=== PATIENT | male | born 1990 | race Two or more races ===

== ENCOUNTER 2023-07-01 16:35 | Emergency (ER) | payer MEDICAID ==
[~2023-07-01] VITALS: Ht 170.2 cm; Wt 84.0 kg
[2023-07-01 18:13] LABS: Basophils # (auto) 0.1 10 ^3/uL (0-0.2); Basophils % (auto) 0.6 % (0.0-2.0); Eosinophils # (auto) 0 10 ^3/uL (0-0.8); Eosinophils % (auto) 0.3 % (0.0-7.0); Hematocrit 44.6 % (41.0-53.0); Hemoglobin 15.6 g/dL (13.5-17.5); Lymphocytes # (auto) 1.7 10 ^3/uL (0.4-5.4); Lymphocytes % (auto) 20.8 % (10.0-50.0); Mean Corpuscular Hemoglobin 31.4 pg (28.0-32.0); Mean Corpuscular Volume 89.8 fL (80.0-100.0); Monocytes # (auto) 0.6 10 ^3/uL (0-1.3); Monocytes % (auto) 7.1 % (0.0-12.0); Neutrophils # (auto) 5.7 10 ^3/uL (1.6-8.6); Neutrophils % (auto) 71.2 % (37.0-80.0); Red Blood Cells 4.97 10^6/uL (4.5-5.90); Red Cell Distribution Width 12.8 % (11.8-14.3); White Blood Cell 8.1 10^3/uL (4.4-10.8)
[2023-07-01 18:18] LABS: Amphetamine Screen, Urine Neg (NEGATIVE); Barbiturate Scree,Urine Neg (NEGATIVE); Benzodiazephine Screen, Urine Neg (NEGATIVE); Cocaine Screen, Urine Neg (NEGATIVE); Opiate Scree,Urine Neg (NEGATIVE)
[2023-07-01 18:19] LABS: Cannabinoid Screen, Urine Neg (NEGATIVE); Phencyclidine Screen, Urine Neg (NEGATIVE)
[2023-07-01 18:22] LABS: Alanine Aminotransferase 290 U/L (7-40); Alkaline Phosphatase 117 U/L (46-116); Anion Gap 9 (5-15); Aspartate Aminotransferase 96 U/L (13-40); Calcium 9.8 mg/dL (8.7-10.4); Carbon Dioxide 25 mmol/L (20-30); Chloride 106 mmol/L (98-107); Glucose 113 mg/dL (74-106); Lipase 46 U/L (12-53); Potassium 4.2 mmol/L (3.5-5.1); Sodium 140 mmol/L (136-145)
[2023-07-01 18:46] LABS: BUN/Creatinine Ratio 14.7 (10.0-20.0); Blood Urea Nitrogen 16 mg/dL (9-23)
[2023-07-01 18:48] LABS: Bilirubin, Total 0.5 mg/dL (0.2-1.0); Total Protein 7.9 g/dL (5.7-8.2)
[2023-07-01] MEDS ORDERED: ACETAMINOPHEN 500 MG TAB PO ONE ×3 (19:45→21:00)
[2023-07-01] MEDS ORDERED: LORazepam 0.5 MG TAB PO ONE (19:45)
[2023-07-01 19:47] LABS: Urine Bacteria FEW /hpf (None Seen); Urine Blood Negative /uL (Negative); Urine Clarity Clear (Clear); Urine Protein, UAD Negative (Negative); Urine Urobilinogen Normal (Negative); Urine WBC <1 /hpf (0 - 3)
[2023-07-01 19:48] LABS: Urine Color STRAW (Yellow)
[2023-07-01 20:43] LABS: Acetaminophen < 2.0 UG/ML (10.0-20.0)
[2023-07-01 20:47] LABS: Salicylate < 3.0 mg/dL (2.8-20.0)
[2023-07-01] MEDS ORDERED: ACET500T58 PO (21:11)
[2023-07-01] MEDS ORDERED: IBUP1TAB4 PO (21:11)
[2023-07-01 22:07] VITALS: BP 141/93; PULSE 119; RESP 20; TEMP 98.8; O2SAT 96
[2023-07-03 10:48] LABS: Free T3 3.49 pg/mL (2.3-4.2)
[2023-07-03 10:49] LABS: Free T4 (Free Thyroxine) 1.12 ng/dL (0.89-1.76)
== END 2023-07-01 22:09 | disposition home or self-care (01) ==
LOC: ER 16:35
DX: F41.1 Generalized anxiety disorder (principal); R00.0 Tachycardia, unspecified; R74.01 Elevation of levels of liver transaminase levels; R51.9 Headache, unspecified; Z79.899 Other long term (current) drug therapy
CPT/HCPCS: 36415; 70450; 71045; 76705; 80053; 80307; 80320; 80329; 81001; 82962; 83690; 84439; 84443; 84481; 84484; 85025; 93005

== ENCOUNTER 2023-07-08 16:45 | Emergency (ER) | payer MEDICAID ==
[~2023-07-08] VITALS: Ht 167.6 cm; Wt 89.6 kg
[~2023-07-08 16:45] MED LIST: ACET500T58 PO; IBUP1TAB4 PO
[2023-07-08 18:41] VITALS: BP 145/100; PULSE 88; RESP 16; TEMP 99.2; O2SAT 97
[2023-07-08] MEDS ORDERED: LORazepam 0.5 MG TAB PO ONE (19:00)
[2023-07-08] MEDS ORDERED: LORA-1121 PO (19:35)
== END 2023-07-08 19:50 | disposition home or self-care (01) ==
LOC: ER 16:45
DX: F41.8 Other specified anxiety disorders (principal)